=== PATIENT | male | born 1955 | race Caucasian/White ===

== ENCOUNTER 2024-03-12 07:14 | Day surgery (SDC) | payer MEDICARE, OTHER ==
[~2024-03-12] VITALS: Ht 172.7 cm; Wt 90.0 kg
[2024-03-12] MEDS ORDERED: SODIUM CHLORIDE 0.9% 1,000 ML ONE (07:26)
[2024-03-12] MEDS ORDERED: MIDAZOLAM HCL 2 MG/2 ML VIAL ONE (08:21)
[2024-03-12] MEDS ORDERED: FentaNYL CITRATE PF 100 MCG/2 ML VIAL ONE (08:21)
[2024-03-12 09:21] LABS: GLUCOMETER DEV NAME(LOC) SDS.; GLUCOSE,POINT OF CARE 91 MG/DL (70-110)
[2024-03-12 09:43] VITALS: PULSE 79; RESP 22; O2SAT 100
[2024-03-12] MEDS ORDERED: MethylPREDNISolone SOD SUCC 125 MG/2 ML VIAL ONE (10:19)
[2024-03-12] MEDS: MethylPREDNISolone SOD SUCC 125 MG/2 ML VIAL IVP ONE (10:27)
[2024-03-12] MEDS: SODIUM CHLORIDE 0.9% 1,000 ML IV ONE (10:31)
[2024-03-12] MEDS ORDERED: BENZOCAINE 20% 50 MCG/SPRAY 57 GM ONE (12:00)
[2024-03-12] MEDS ORDERED: LIDOCAINE 2% 11 ML JELLY ONE (12:00)
[2024-03-12] MEDS ORDERED: LIDOCAINE 4% 50 ML SOLUTION ONE (12:00)
== END 2024-03-12 11:20 | disposition home or self-care (01) ==
LOC: SURGERY 07:14
PROVIDERS: ATTEND Internal Medicine Critical Care Medicine
DX: J38.4 Edema of larynx (principal); B37.0 Candidal stomatitis; Z79.899 Other long term (current) drug therapy; Z87.01 Personal history of pneumonia (recurrent); Z86.11 Personal history of tuberculosis
CPT/HCPCS: 31623; 82962; 87206; 87101; 87220; 87070; 88108; 31624; 71045; 87015; J3010; J2250; J2919; J7030; Z7610